=== PATIENT | male | born 1950 ===

== ENCOUNTER 2024-10-11 08:00 | Outpatient (CLI) | payer MEDICARE, BC ==
[2024-10-11] VITALS (21 sets, daily range): BP systolic 119–168; BP diastolic 70–105; PULSE 64–90
--- NOTE | 2024-10-11 19:14 | CARDIOLOGY REPORT ---
DATE OF SERVICE: 10/11/2024 DICTATING PHYSICIAN: ELLEN Shah MD CARDIAC TILT TABLE REPORT REQUESTING PHYSICIAN: ELLEN Shah MD INDICATION: The patient is a 73-year-old male with a history of dizziness and syncope. This study was done to evaluate for cardio-depressive type of syncope. routine tilt table protocol was followed. PROCEDURE TECHNIQUE: In supine resting condition, the patient's heart rate was 64, blood pressure 160/94, mm of mercury. The patient was asymptomatic. After 40 minutes of 70-degrees tilt, the patient's heart rate was 90 per minute with a blood pressure of 156/103. In supine recovery condition, the patient's heart rate was 73 per minute with a blood pressure of 140/70. IMPRESSION: A 73-year-old male with cardiac tilt table findings are negative for cardio-depressive type syncope. Recommend clinical correlation. ELLEN Shah MD TID: [id number] RECEIPT: [id number] MAUREEN/APOLLO/GISSEL cc: Primary Care Physician BOSSMAN
== END 2024-10-11 23:59 | disposition home or self-care (01) ==
LOC: CARD DIAG 08:00
PROVIDERS: ATTEND Internal Medicine Cardiovascular Disease
DX: R55 Syncope and collapse (principal)
CPT/HCPCS: 93660